=== PATIENT | male | born 1960 | race Caucasian/White ===

== ENCOUNTER 2017-03-18 10:08 | Emergency (ER) | payer BC, MEDICAID ==
[~2017-03-18] VITALS: Ht 162.6 cm; Wt 72.0 kg
[2017-03-18] MEDS ORDERED: LIDOCAINE/MYLANTA 40 ML BTL PO STA (10:11)
[2017-03-18] MEDS ORDERED: ASPIRIN 81 MG TAB PO STA (10:11)
[2017-03-18] MEDS ORDERED: FAMOTIDINE 20 MG INJ IV STA (10:11)
[2017-03-18 10:13] VITALS: Ht 162.6 cm; Wt 72.0 kg
--- NOTE | 2017-03-18 10:28 | ERD ---
ER Documentation Chief Complaint Date/Time DATE: 03/18/17 TIME: :22 Chief Complaint chest pain started this am HPI This is a 57-year-old male history of smoking and hypertension who presents to the emergency room with chest discomfort. He describes earlier today he had a couple of hot soup and directly after had some cold water. Directly after the water he felt a spasm and tightening in his chest that was nonradiating. He denies any nausea or vomiting, no jaw pain no back pain. He took his 's nitroglycerin and took something for his stomach. The patient states complete resolution of his symptoms. He only has 1 out of 10 discomfort currently. He denies any recent exertional symptoms, exertional fatigue or shortness of breath. ROS All systems reviewed and are negative except as per history of present illness. Medications Home Meds Active Scripts Famotidine* (Pepcid*) 20 Mg Tablet, 20 MG PO BID for 14 Days, TAB Prov:LUIS ENRIQUE ROBBINS MD 03/18/17 Reported Medications Pantoprazole* (Pantoprazole*) 20 Mg Tablet., 20 MG PO DAILY, TAB 03/18/17 Levothyroxine Sodium* (Levothyroxine Sodium*) 125 Mcg Tablet, 125 MCG PO BEFORE BREAKFAST, #30 TAB 03/18/17 Atenolol* (Atenolol*) 25 Mg Tablet, 25 MG PO DAILY, #30 TAB 03/18/17 Losartan Potassium* (Losartan Potassium*) 25 Mg Tablet, 25 MG PO DAILY, TAB 03/18/17 Discontinued Reported Medications Omeprazole* (Omeprazole*) 20 Mg Capsule., 20 MG PO DAILY Y for PRN, #30 CAP 03/18/17 Allergies Allergies: Coded Allergies: No Known Allergy (Unverified , 03/18/17) FmHx Family History: No diabetes Physical Exam Vitals Vital Signs Date Time Temp Pulse Resp B/P Pulse Ox O2 Delivery O2 Flow Rate FiO2 03/18/17 11:31 98.2 90 16 147/103 97 Room Air 03/18/17 11:13 94 17 155/109 98 Room Air 03/18/17 10:13 98.2 99 20 160/105 99 Physical Exam General: Well developed, well nourished, no acute distress Head: Normocephalic, atraumatic. Eyes: Pupils equally reactive, EOM intact ENT: Moist mucous membranes Neck: Supple, no lymphadenopathy Respiratory: Lungs clear bilaterally, no distress Cardiovascular: RRR, no murmurs, rubs, or gallops Abdominal: Soft, non-tender, non-distended, no peritoneal signs : Deferred MSK: No edema, no unilateral swelling, 5/5 strength, no pulse deficits Neurologic: Alert and oriented, moving all extremities, normal speech, no focal weakness, no cerebellar signs Skin: No rash Psych: Normal mood Result Diagram: 03/18/17 1026 03/18/17 1026 Results 24 hrs Laboratory Tests Test 03/18/17 10:26 White Blood Count 5.310^3/ul Red Blood Count 4.3610^6/ul Hemoglobin 12.6g/dl Hematocrit 38.1% Mean Corpuscular Volume 87.4fl Mean Corpuscular Hemoglobin 28.9pg Mean Corpuscular Hemoglobin Concent 33.1g/dl Red Cell Distribution Width 14.5% Platelet Count 49745^3/UL Mean Platelet Volume 10.9fl Neutrophils % 41.6% Lymphocytes % 44.2% Monocytes % 6.0% Eosinophils % 7.2% Basophils % 0.8% Nucleated Red Blood Cells % 0.0/100WBC Neutrophils # 2.210^3/ul Lymphocytes # 2.310^3/ul Monocytes # 0.310^3/ul Eosinophils # 0.410^3/ul Basophils # 0.010^3/ul Nucleated Red Blood Cells # 0.010^3/ul Prothrombin Time Pending Prothrombin Time Ratio 1.0 INR International Normalized Ratio Pending Activated Partial Thromboplast Time 30.7Sec Sodium Level 140mmol/L Potassium Level 4.2mmol/L Chloride Level 101mmol/L Carbon Dioxide Level 24mmol/L Anion Gap 19 Blood Urea Nitrogen 17mg/dl Creatinine 1.04mg/dl Glucose Level 186mg/dl Calcium Level 9.1mg/dl Troponin I < 0.012ng/ml Current Medications Medications (Trade) Dose Ordered Sig/Camille Route PRN Reason Start Time Stop Time Status Last Admin Dose Admin Aspirin (Aspirin) 162 mg ONCE STAT PO 03/18/17 10:11 03/18/17 10:13 DC 03/18/17 10:25 Famotidine (Pepcid Iv) 20 mg ONCE STAT IV 03/18/17 10:11 03/18/17 10:13 DC 03/18/17 10:25 Miscellaneous Medication (Gi Cocktail (2)) 40 ml ONCE STAT PO 03/18/17 10:11 03/18/17 10:13 DC 03/18/17 10:25 Atenolol (Tenormin) 25 mg ONCE ONCE PO 03/18/17 11:00 03/18/17 11:01 DC 03/18/17 11:05 Losartan Potassium (Cozaar) 25 mg ONCE ONCE PO 03/18/17 11:00 03/18/17 11:01 DC 03/18/17 11:05 Ondansetron HCl (Zofran Inj) 4 mg ONCE STAT IV 03/18/17 10:53 03/18/17 10:54 DC 03/18/17 11:04 Procedures/MDM EKG, MONITORS, & DIAGNOSTIC IMAGING: EKG: I reviewed and interpreted a 12-lead EKG. Rhythm: Normal sinus rhythm Ectopy: None Intervals: No abnormalities ST segments: No elevations or depressions T waves: No contiguous inversions Repeat EKG: EKG: I reviewed and interpreted a 12-lead EKG. Rhythm: Normal sinus rhythm Ectopy: None Intervals: No abnormalities ST segments: No elevations or depressions T waves: No contiguous inversions Chest x-ray: I reviewed and interpreted a 1 view of the chest Mediastinum: No enlargement Cardiac silhouette: No cardiomegaly Airspace: Clear lung fu bilaterally without evidence of pneumothorax Bones: No evidence of fracture LAB INTERPRETATION: Negative troponin MEDICAL DECISION MAKING: The patient's history, physical exam and clinical presentation is most consistent with likely GI process such as esophageal spasm versus dyspepsia given the description of postprandial process. He does not exhibit any exertional symptoms. Based on the patient's clinical exam and history and risk factors, I have a much lower clinical concern for pulmonary embolism, acute aortic dissection, pneumothorax, pneumonia, cardiac tamponade HEART Score: 2 MACE Rate: Less than 1.7% Shared Decision Making: We had a conversation regarding risk stratification, MACE rate, and the risks, benefits, alternatives of disposition planning options. Disposition planning: Given the patients atypical presentation and better alternative diagnosis, I feel that hospitalization is not necessary and likely increases his risk of false positive testing and complications related to this. We discussed outpatient follow up, return precautions. We also discussed serial enzymes here in the ED, patient is somewhat hesitant at this time. Will discuss upon results. ER COURSE: The patient was given a GI cocktail and now has improved symptomatology. He received aspirin per EMS. I again discussed serial troponins. The patient prefers to go home. He was given his home blood pressure medications which she did not take this morning. The patient understands the risks involved including the risk of missed adverse cardiac event. The patient has capacity. I believe he is making a reasonable decision. The patient is well-informed. I kept the patient and/or family informed of laboratory and diagnostic imaging results throughout the emergency room course. DISPOSITION PLAN: We discussed follow up with the patient's primary care doctor within 24 to 48 hours as needed. We also discussed return to the emergency room for worsening symptoms or worsening condition. Outpatient referral: [None required] Discharge Medications: Pepcid Departure Diagnosis: Primary Impression: Chest pain Chest pain type: unspecified Qualified Code: R07.9 - Chest pain, unspecified type Additional Impression: Dyspepsia Condition: Stable LUIS ENRIQUE ROBBINS MD Mar 18, 2017 10:28
[2017-03-18] MEDS ORDERED: LOSA25TA5 PO (10:30)
[2017-03-18] MEDS ORDERED: OMEP20CA16 PO (10:31)
[2017-03-18] MEDS ORDERED: ATEN-51 PO (10:31)
[2017-03-18] MEDS ORDERED: LEVO125T75 PO (10:31)
[2017-03-18] MEDS ORDERED: PANT20TA3 PO (10:32)
[2017-03-18] MEDS ORDERED: ONDANSETRON 4 MG INJ IV STA (10:53)
[2017-03-18] MEDS ORDERED: ATENOLOL 25 MG TAB PO ONE (11:00)
[2017-03-18] MEDS ORDERED: LOSARTAN 25 MG TAB PO ONE (11:00)
[2017-03-18 11:12] LABS: BASOPHILS % 0.8 % (0.0-2.0); EOSINOPHILS # 0.4 10^3/ul (0.0-0.5); EOSINOPHILS % 7.2 % (0.0-7.0); HEMATOCRIT 38.1 % (42.0-52.0); HEMOGLOBIN 12.6 g/dl (14.0-18.0); LYMPHOCYTES # 2.3 10^3/ul (0.8-2.9); LYMPHOCYTES % 44.2 % (15.0-51.0); MEAN CORPUSCULAR HEMOGLOBIN 28.9 pg (29.0-33.0); MEAN CORPUSCULAR HGB CONC 33.1 g/dl (32.0-37.0); MEAN CORPUSCULAR VOLUME 87.4 fl (82.0-101.0); MEAN PLATELET VOLUME 10.9 fl (7.4-10.4); MONOCYTE # 0.3 10^3/ul (0.3-0.9); NEUTROPHIL # 2.2 10^3/ul (1.6-7.5); NEUTROPHILS % 41.6 % (39.0-77.0); PLATELET COUNT 196 10^3/UL (140-415); RED BLOOD COUNT 4.36 10^6/ul (4.70-6.10); RED CELL DISTRIBUTION WIDTH 14.5 % (11.5-14.5); WHITE BLOOD COUNT 5.3 10^3/ul (4.8-10.8)
[2017-03-18 11:32] LABS: ANION GAP 19 (8-16); BLOOD UREA NITROGEN 17 mg/dl (7-20); CALCIUM 9.1 mg/dl (8.4-10.2); CARBON DIOXIDE 24 mmol/L (21-31); CHLORIDE 101 mmol/L (97-110); CREATININE 1.04 mg/dl (0.61-1.24); GLUCOSE 186 mg/dl (70-220); POTASSIUM 4.2 mmol/L (3.5-5.1); SODIUM 140 mmol/L (135-144)
--- NOTE | 2017-03-18 11:32 | RADRPT ---
PROCEDURE: XR Chest. CLINICAL INDICATION: Chest Pain. TECHNIQUE: Single frontal chest x-ray. COMPARISON: None. FINDINGS: The lungs are clear of acute infiltrates, edema, effusions, or masses.. The cardiomediastinal silho uette is unremarkable. The osseous structures are intact. IMPRESSION: No acute cardiopulmonary disease. RPTAT: EE .Fabiano Levy MD, MD Date Time Electronically viewed and signed by .Fabiano Levy MD, MD on 03/18/2017 11:32 .L/
[2017-03-18 11:37] LABS: PARTIAL THROMBOPLASTIN TIME 30.7 Sec (25.0-35.0)
[2017-03-18 11:48] LABS: TROPONIN-I < 0.012 ng/ml (0.00-0.12)
[2017-03-18] MEDS ORDERED: FAMO-96 PO (12:11)
[2017-03-18 12:46] VITALS: BP 147/99; PULSE 85; RESP 18; TEMP 98.2
[2017-03-18 12:46] LABS: INR 0.94; PROTIME 12.6 Sec (12.2-14.2)
== END 2017-03-18 12:48 | disposition home or self-care (01) ==
LOC: E/R 10:08
DX: R07.9 Chest pain, unspecified (principal); R10.13 Epigastric pain; I10 Essential (primary) hypertension; F17.210 Nicotine dependence, cigarettes, uncomplicated
CPT/HCPCS: 36415; 71010; 80048; 84484; 85025; 85610; 85730; 93005; 96374; 96375; 99285; J2405

== ENCOUNTER 2017-08-28 17:19 | Observation (INO) | END 2017-08-30 15:45 | disposition home or self-care (01) ==